=== PATIENT | male | born 1955 | race Asian ===

== ENCOUNTER 2017-09-14 17:30 | Emergency (ER) | payer BC, OTHER ==
[~2017-09-14] VITALS: Ht 185.4 cm; Wt 85.7 kg
[2017-09-14 17:43] VITALS: TEMP 36.3; Ht 185.4 cm; Wt 85.7 kg
[2017-09-14] MEDS ORDERED: MAGN250T8 PO (18:10)
[2017-09-14] MEDS ORDERED: CALC-51 PO (18:10)
[2017-09-14] MEDS ORDERED: CALC500T83 PO (18:12)
--- NOTE | 2017-09-14 18:15 | EMERGENCY ROOM VISIT NOTE ---
ED Visit Note First contact with patient: 17:46 CHIEF COMPLAINT: Toe pain and bruising HISTORY OF PRESENT ILLNESS: This is a 62-year-old male that presents to the emergency department with complaint of left fourth toe pain and discoloration started yesterday. Patient is unsure if he injured the toe recently, he says it is possible he could have dropped something on it but he does not recall. He states yesterday that he was walking outside for about 30 minutes, states he had on thin socks and tight shoes, and started to feel pain in this toe. Today the toe has become more swollen, reddish purple and painful. He has applied antibiotic ointment and a dressing to the toe, but denies any open wounds to the toe or drainage. He states that the pain has improved this afternoon, currently rates it as constant, throbbing, 3/10. Pain is worsened with walking on the foot. He denies any pain or changes in any of the other toes or remainder of the foot. Patient states that he was worried it could be frostbite , he was unable to get an appointment with his PCP until tomorrow, and his friend told him he should go to the ER. REVIEW OF SYSTEMS: Skin: No rash, new lesions, or masses. General: No fever or chills, fatigue, loss of appetite, or significant recent weight gain or loss. PMH: The patient is healthy; there is no significant medical or surgical history. SOCIAL HISTORY: Patient lives at home. He is not a smoker. PHYSICAL EXAM: Vital Signs: Reviewed Nurse's notes. The ankle joint is not swollen or tender. The foot is not swollen and the skin is intact and there is no drainage noted. The fourth toe of the left foot is mildly swollen, there is a purplish red area on the top of the toe that is mildly tender to palpation. No pain with movement of the toe. Brisk cap refill of the toe. Normal sensation to light touch of the toe. EMERGENCY DEPARTMENT COURSE: I examined the patient. The exam seems consistent with an abrasion or bruise to the toe, very mildly tender, and neurovascularly intact. An X-ray of the toe is negative for fractures or bony abnormality. The patient was updated on all results and plan for discharge, he was instructed to keep the toe clean and dry, and to wear protective foot wear. He was also encouraged to follow up with his PCP in the next few days if his toe pain is not improving, he verbalized understanding. Patient was discharged home in stable condition and ambulatory. Current/Historical Medications Scheduled Calcium (Calcium), 1 TAB PO DAILY Magnesium Oxide (Mg Supplement (Magnesium), 1 TAB PO DAILY Allergies Coded Allergies: No Known Allergies (Unverified , 09/14/17) Vital Signs Date Time Temp Pulse Resp B/P (MAP) Pulse Ox O2 Delivery O2 Flow Rate FiO2 09/14/17 19:14 71 18 115/82 98 09/14/17 17:43 36.3 84 16 123/87 98 Room Air Departure Information Impression Primary Impression: Contusion of toe, left Dispostion Home / Self-Care Condition GOOD Referrals Gilberto King III, M.D. (PCP) Patient Instructions ED Contusion Lower Ext, My [facility] Additional Instructions You have been seen in the emergency department today for your left toe pain. X- ray today does not show any bony abnormalities or fractures. Stay off the foot as much as possible and keep it elevated. Keep the toe clean and dry, and wear socks and shoes for protection. You may take ibuprofen 600 mg every 6-8 hours and/or Tylenol 1000 mg every 8 hours as needed for pain. Please follow-up with your primary care provider in the next 4-5 days if your toe is not improved, or sooner if it is worsening in any way. Please return to the emergency department for severe pain, redness/swelling/ streaking from the toe, open wound or draining pus, fevers or chills, or any other concerns. Problem Qualifiers Primary Impression: Contusion of toe, left Encounter type: initial encounter Toe: lesser toe Damage to nail status: without damage Qualified Codes: S90.122A - Contusion of left lesser toe(s) without damage to nail, initial encounter
--- NOTE | 2017-09-14 18:26 | DIAGNOSTIC IMAGING REPORT ---
LEFT FOURTH TOE 4 VIEWS CLINICAL HISTORY: Fourth toe pain. FINDINGS: 4 views of the left fourth toe are obtained. No prior studies are available for comparison at the time of dictation. The skeletal structures are well mineralized for age. No fracture is seen. No bony erosion or periostitis is identified. The fourth metatarsophalangeal and interphalangeal joints appear maintained. Survey images of the second, third, and fifth toes show no abnormality. The overlying soft tissues are normal as visualized. IMPRESSION: No acute bony abnormality is seen in the left fourth toe. Electronically signed by: Chris Brandon M.D. 09/14/2017 6:25 PM Dictated Date/Time: 09/14/2017 6:24 PM
[2017-09-14 19:14] VITALS: BP 115/82; PULSE 71; O2SAT 98
== END 2017-09-14 19:10 | disposition home or self-care (01) ==
LOC: C.EDB 17:31 → C.EDD 19:10
DX: S90.122A Contusion of left lesser toe(s) without damage to nail, initial encounter (principal); X58.XXXA Exposure to other specified factors, initial encounter